=== PATIENT | male | born 1980 | race Caucasian/White ===

== ENCOUNTER 2021-07-28 08:08 | Emergency (ER) | payer OTHER ==
[~2021-07-28] VITALS: Ht 180.3 cm; Wt 68.0 kg
[2021-07-28 08:58] LABS: HEMOGLOBIN 12.7 gm/dl (14.0-17.5); RED BLOOD COUNT 4.04 M/UL (4.20-5.50); WHITE BLOOD COUNT 25.9 K/UL (4.5-11.0)
[2021-07-29 16:16] LABS: % CD 4 POS. LYMPH. 48.2 % (30.8-58.5); ABSOLUTE CD 4 HELPER 193 /uL (359-1519); BASOS 0 % (Not Estab.); EOS 0 % (Not Estab.); HEMATOCRIT 33.5 % (37.5-51.0); HEMOGLOBIN 11.2 g/dL (13.0-17.7); IMMATURE GRANS (ABS) 0.1 x10E3/uL (0.0-0.1); IMMATURE GRANULOCYTES 1 % (Not Estab.); LYMPHS 2 % (Not Estab.); LYMPHS (ABSOLUTE) 0.4 x10E3/uL (0.7-3.1); MCH 32.5 pg (26.6-33.0); MCHC 33.4 g/dL (31.5-35.7); MCV 97 fL (79-97); MONOCYTES 6 % (Not Estab.); MONOCYTES(ABSOLUTE) 1.1 x10E3/uL (0.1-0.9); NEUTROPHILS 91 % (Not Estab.); NEUTROPHILS (ABSOLUTE) 18.5 x10E3/uL (1.4-7.0); PLATELETS 259 x10E3/uL (150-450); RBC 3.45 x10E6/uL (4.14-5.80); WBC 20.2 x10E3/uL (3.4-10.8)
[2021-07-29 21:09] LABS: HIV-1 RNA BY PCR <20 (.)
== END 2021-07-28 19:50 | disposition short-term general hospital (02) ==
LOC: ER1 08:08 → EDBD 08:08 → ER1 19:50
PROVIDERS: Emergency Medicine; Internal Medicine Nephrology; Physician Assistant
DX: A41.9 Sepsis, unspecified organism (principal); J18.9 Pneumonia, unspecified organism; J90 Pleural effusion, not elsewhere classified; N17.9 Acute kidney failure, unspecified; G93.41 Metabolic encephalopathy; I67.83 Posterior reversible encephalopathy syndrome; Z20.822 Contact with and (suspected) exposure to COVID-19
CPT/HCPCS: ECHO; 36600; 70450; 71045; 71250; 80053; 80307; 81001; 82140; 82550; 82553; 82570; 82803; 83605; 83874; 83880; 84133; 84156; 84300; 84484; 85025; 85610; 85730; 86361; 87040; 87081; 87086; 87278; 87536; 87899; 89050; 93005; 93306; 94002; 94760; 96374; 96375; 99285; C9113; J0456; J0696; J1450; J1940; J1953; J2185; J2250; J2704; J3370; J7030; J7070; U0002